=== PATIENT | female | born 1955 | race Caucasian/White ===

== ENCOUNTER → 2022-02-05 13:54 | Outpatient (CLI) | payer OTHER, SELFPAY ==
--- NOTE | ~2022-02-05 | DEXA_ITS ---
Bone Density Report Name: JOHANA ROD Age: 66 Sex: Female Ethnicity: White Date of : 1955 Indication: postmenopausal; screening for osteoporosis; parental hip fracture; height loss; Referring Provider: NAGA FRIEDMAN Study: Bone densitometry was performed. Exam Date: February 05, 2022 Accession number: [id number] Bone Density: Region BMD T-score Z-score Classification AP Spine (L1, L2) 0.981 0.0 1.7 Normal Femoral Neck (Left) 0.790 -0.5 1.0 Normal Total Hip (Left) 0.943 0.0 1.2 Normal Femoral Neck (Right) 0.724 -1.1 0.4 Osteopenia Total Hip (Right) 0.921 -0.2 1.0 Normal Total Hip Mean 0.932 -0.1 1.1 Normal World Health Organization criteria for BMD impression classify patients as: Normal (T-score at or above -1.0), Osteopenia (T-score between -1.0 and -2.5), or Osteoporosis (T-score at or below -2.5). 10-year Fracture Risk(1): Major Osteoporotic Fracture 16% Hip Fracture 0.6% Reported Risk Factors: [place] (), Neck BMD=0.724, BMI=28.4, parental fracture (1) FRAX(R) Version 3.08. Fracture probability calculated for an untreated patient. Fracture probability may be lower if the patient has received treatment. Previous Exams: Region Exam Age BMD T-score BMD Change BMD Change Date g/cm2 vs Baseline vs Previous AP Spine(L1, L2) 02/05/2022 66 0.981 0.0 0.042* 0.019 06/12/2016 61 0.962 -0.2 0.022 0.039* 06/25/2013 58 0.923 -0.5 -0.016 -0.016 05/01/2011 56 0.939 -0.4 Total Hip(Left) 02/05/2022 66 0.943 0.0 0.179* -0.004 06/12/2016 61 0.948 0.0 0.183* 0.028* 06/25/2013 58 0.919 -0.2 0.155* 0.155* 05/01/2011 56 0.764 -1.5 Total Hip(Right) 02/05/2022 66 0.921 -0.2 -0.022 -0.027 06/12/2016 61 0.948 0.0 0.005 0.029* 06/25/2013 58 0.918 -0.2 -0.025 -0.025 05/01/2011 56 0.943 0.0 *Denotes significance at 95% confidence level, LSC for AP Spine = 0.022 g/cm2, LSC for Total Hip = 0.027 g/cm2 Clinical Information Provided by Patient: Parent has had a hip fracture Has used the following medications: Vitamin D, Calcium Patient maximum height was 63.75 Menopause Age: 52 No regular weight bearing exercise Drinks caffeinated beverages Onset of menses at age 16 Number of children 0 Impression: The
--- NOTE | ~2022-02-05 | MM_ITS ---
EXAMINATION: MM screening [facility] BI w humberto HISTORY: Screening mammogram TECHNIQUE: Craniocaudal and mediolateral oblique 3-D tomosynthesis images were obtained and synthetic 2-D images were generated. CAD analysis was submitted and interpreted. COMPARISON: 02/10/2019, 06/12/2016, 11/06/2012 BREAST PARENCHYMAL COMPOSITION: There are scattered areas of fibroglandular density. FINDINGS: There is no suspicious mass, calcification, or architectural distortion to suggest malignan cy in either breast. There has been no suspicious interval change. IMPRESSION: 1. No mammographic evidence of malignancy. 2. Recommend routine screening mammography in one year. BI-RADS Category 1: Negative Reviewed, dictated and finalized at location A.
== END ==
PROVIDERS: PCP Obstetrics & Gynecology Gynecology; Visit Provider Obstetrics & Gynecology Gynecology
DX: Z12.31 Encounter for screening mammogram for malignant neoplasm of breast (principal); Z78.0 Asymptomatic menopausal state; M85.851 Other specified disorders of bone density and structure, right thigh
CPT/HCPCS: 77063; 77067; 77080

== ENCOUNTER → 2022-02-05 14:02 | Outpatient (CLI) | payer OTHER, SELFPAY ==
--- NOTE | ~2022-02-05 | US_ITS ---
EXAMINATION: US axilla RT INDICATION: Palpable lump of the right axilla TECHNIQUE: Targeted high-resolution ultrasound is performed in the area of clinical concern. COMPARISON: None available FINDINGS: No suspicious cystic or solid mass is identified in the area of the palpable abnormality. IMPRESSION: 1. No specific sonographic correlate is identified for the reported palpable abnormality of concern. Further evaluation at this time should be based on clinical assessment. Continued follow-up physical examination is recommended. BI-RADS Category 1: Negative Reviewed, dictated and finalized at location A. IMPRESSION: 1. No specific sonographic correlate is identified for the reported palpable ab normality of concern. Further evaluation at this time should be based on clinic al assessment. Continued follow-up physical examination is recommended. BI-RADS Category 1: Negative
== END ==
PROVIDERS: PCP Family Medicine Sports Medicine; Visit Provider Family Medicine Sports Medicine
DX: R22.31 Localized swelling, mass and lump, right upper limb (principal)
CPT/HCPCS: 76882

== ENCOUNTER 2022-08-01 11:07 | Day surgery (SDC) | payer MEDICARE, SELFPAY ==
[2022-07-18 08:17] VITALS: BMI 26.2
[2022-08-01 11:34] VITALS: BP 132/80; PULSE 71; RESP 16; TEMP 36.4; O2SAT 99
[2022-08-01] MEDS: LACTATED RINGERS 1,000 ML 150 ML IV CONT (12:00)
[2022-08-01 12:02] LABS: Glucose Point of Care 104 mg/dl (65-105)
--- NOTE | 2022-08-01 12:23 | P.PNAN_ITS ---
Anes - Initial Pre Proc Eval Procedure: Operation Date: 08/01/22 13:00 Proposed Procedures p Screening Colonoscopy - Abel Lora MD Date/Time: 08/01/22 12:23 Surgeon: Abel Lora MD Pre Op Diagnosis: Neoplasm Screening Patient Data Age: 67 Gender: F Height: 1.6 m Weight: 63 kg Last Vital Signs Temp 36.4 C L 08/01/22 11:34 Pulse 71 08/01/22 11:34 Resp 16 08/01/22 11:34 BP 132/80 08/01/22 11:34 Pulse Ox 99 08/01/22 11:34 O2 Del Method Room Air 08/01/22 11:34 Allergies Allergy/AdvReac Type Severity Reaction Status Date / Time No Known Allergies Allergy Unverified 08/01/22 11:36 Home Medications Medication Instructions Recorded Confirmed Type peg 3350-electrolytes 236 240 ml PO Q10M #4,000 mL 04/25/22 08/01/22 Rx gram-22.74 gram-6.74 gram-5.86 gram solution (Golytely) atorvastatin 20 mg tablet 80 mg PO DAILY 07/18/22 08/01/22 History metformin 500 mg tablet,extended 500 mg PO BID 07/18/22 08/01/22 History release 24 hr Laboratory Tests 08/01/22 11:59 POC Capillary Glucose 104 mg/dl mg/dl (65-105) Patient hx anesthesia problems: none Family hx anesthesia problems: none Results Review: All pre-operative results and documents have been reviewed as part of the pre- operative evaluation. [facility] Past Medical History Medical History (Updated 08/01/22 @ 12:24 by Stefano Escobar MD) Diabetes Hyperlipidemia Surgical History Surgical History (Updated 08/01/22 @ 12:24 by Stefano Escobar MD) H/O breast biopsy H/O colonoscopy Social History Social History Smoking status: Never smoker Alcohol intake: never Substance use: never Substance use type: does not use Living arrangements: with family Spiritual care concerns: No Anes - Eval Final PreProcedure Day of Procedure 08/01/22 12:23 Patient weight: normal Heart: regular rate and rhythm Lungs: clear to auscultation Airway: Mallampati scale class II Last oral intake: >/= 8 hours ASA classification: II Emergent: no Anesthetic plan: proceed Anesthesia type and monitoring: general GIVS and standard monitoring Results Review: All pre-operative results and documents have been reviewed as part of the pre- operative evaluation. Informed Consent: The patient's anesthetic plan and its attendant risks and benefits were discussed with the patient/family/POA. Questions were solicited and answers provided to the satisfaction of the patient/family/POA.
--- NOTE | 2022-08-01 12:40 | P.HP_ITS ---
History of Present Illness History of Present Illness Consent: Risks, benefits, and alternatives have been discussed and questions answered. Patient agrees to proceed with procedure. Chief complaint: Neoplasm Screening Narrative: Sandra Hernandez is a 67 year old female Presents for screening colonoscopy. Patient's current weight appetite and bowel movements appear normal. Patient denies abdominal pain. She has had no bleeding. Family history noncontribu tory. Review of Systems Review of Systems: Review of systems noncontributory. [facility] Past Medical History Medical History (Updated 08/01/22 @ 12:41 by Abel Lora MD) Diabetes Hyperlipidemia Surgical History Surgical History (Updated 08/01/22 @ 12:24 by Stefano Escobar MD) H/O breast biopsy H/O colonoscopy Social History Social History Smoking status: Never smoker Alcohol intake: never Substance use: never Substance use type: does not use Living arrangements: with family Spiritual care concerns: No Meds Home Medications and Allergies Home Medications Medication Instructions Recorded Confirmed Type peg 3350-electrolytes 236 240 ml PO Q10M #4,000 mL 04/25/22 08/01/22 Rx gram-22.74 gram-6.74 gram-5.86 gram solution (Golytely) atorvastatin 20 mg tablet 80 mg PO DAILY 07/18/22 08/01/22 History metformin 500 mg tablet,extended 500 mg PO BID 07/18/22 08/01/22 History release 24 hr Allergies Allergy/AdvReac Type Severity Reaction Status Date / Time No Known Allergies Allergy Unverified 08/01/22 11:36 Vital Signs Vital Signs - 24 hr 08/01/22 11:34 Temperature 97.5 F L Pulse Rate 71 Respiratory Rate 16 Blood Pressure 132/80 Pulse Oximetry 99 Oxygen Delivery Room Air Exam Narrative: Physical exam reveals patient be alert. Vital signs stable. HEENT exam is unremarkable. Patient is anicteric. Lungs are clear to auscultation and percussion. Heart is without murmur or extra sounds. Abdomen bowel sounds present soft nontender with no organomegaly. Digital external rectal exam is normal. Assessment and Plan Assessment and plan (1) Encounter for screening colonoscopy: Code(s): Z12.11 - Encounter for screening for malignant neoplasm of colon Status: Acute Assessment and Plan: Patient presents for screening colonoscopy. She appears to be at average risk for colon polyps. Further recommendations may be given after endoscopy.
[2022-08-01 13:25] VITALS: BP 104/72; PULSE 66; RESP 16; O2SAT 98
[2022-08-01 13:35] VITALS: BP 103/90; PULSE 61; RESP 16; O2SAT 99
--- NOTE | 2022-08-01 13:42 | SUR.PHASEII ---
PT AWAKE AND ALERT. EATING AND DRINKING. DENIES PAIN. SPOUSE UPDATED. HE WILL BE BACK AT [facility] AT 1400
--- NOTE | 2022-08-01 13:44 | WPDANESPN ---
Anes - Prog Note Post-Op Date/Time: 08/01/22 13:44 Cardiovascular status: normal Respiratory status: normal Airway patency: baseline Mental status: baseline Post-Op hydration status: normal Vital Signs: Last Vital Signs Temp 36.4 C L 08/01/22 11:34 Pulse 61 08/01/22 13:35 Resp 16 08/01/22 13:35 BP 103/90 08/01/22 13:35 Pulse Ox 99 08/01/22 13:35 O2 Del Method Room Air 08/01/22 13:35 Pain Score (VAS): 0/10 I/O: Intake & Output 07/31/22 08/01/22 08/01/22 23:59 07:59 15:59 Intake Total 400 Balance 400 08/01/22 11:59 POC Capillary Glucose 104 Patient Feedback: Patient satisfied with anesthetic care.
[2022-08-01 13:45] VITALS: BP 110/56; PULSE 70; RESP 16; O2SAT 97
== END 2022-08-01 13:59 | disposition home or self-care (01) ==
PROVIDERS: PCP Family Medicine Sports Medicine; Visit Provider Internal Medicine Gastroenterology
PROC: 0DJD8ZZ Inspection of Lower Intestinal Tract, Via Natural or Artificial Opening Endoscopic (ICD-10-PCS; CPT 45378; principal; 2022-08-01 13:00)
DX: Z12.11 Encounter for screening for malignant neoplasm of colon (principal)
CPT/HCPCS: 45378

== ENCOUNTER → 2023-06-23 09:52 | Outpatient (CLI) | payer MEDICARE, SELFPAY ==
--- NOTE | ~2023-06-23 | MM_ITS ---
EXAMINATION: MM screening [facility] BI w humberto HISTORY: Screening mammogram TECHNIQUE: Craniocaudal and mediolateral oblique 3-D tomosynthesis images were obtained and synthetic 2-D images were generated. CAD analysis was submitted and interpreted. COMPARISON: 02/05/2022, 02/10/2019 BREAST PARENCHYMAL COMPOSITION: There are scattered areas of fibroglandular density. FINDINGS: No suspicious mass, calcification, or architectural distortion are identified in either karen ast to suggest malignancy. There has been no suspicious interval change. IMPRESSION: 1. No mammographic evidence of malignancy. 2. Recommend routine screening mammography in one year. BI-RADS Category 1: Negative Reviewed, dictated and finalized at location A.
== END ==
PROVIDERS: PCP Obstetrics & Gynecology Gynecology; Visit Provider Obstetrics & Gynecology Gynecology
DX: Z12.31 Encounter for screening mammogram for malignant neoplasm of breast (principal)
CPT/HCPCS: 77063; 77067

== ENCOUNTER → 2023-07-14 09:05 | Outpatient (CLI) | payer MEDICARE, SELFPAY ==
--- NOTE | ~2023-07-14 | MM_ITS ---
EXAMINATION: MM diagnostic [facility] RT w humberto HISTORY: Asymmetry reported in far posterior third of inner right breast on 06/23/2023 screening crani ocaudal view TECHNIQUE: Additional 3-D tomosynthesis images of right breast were performed and synthetic 2-D image s were generated. CAD analysis was submitted and interpreted. COMPARISON: 06/23/2023 bilateral screening mammogram FINDINGS: No suspicious mass, architectural distortion, malignant constipation, skin thickening or re traction is detected. IMPRESSION: 1. No mammographic evidence of malignancy 2. Routine annual mammographic screening is recommended BI-RADS Category 1: Negative Reviewed, dictated and finalized at location A.
== END ==
PROVIDERS: PCP Family Medicine; Visit Provider Obstetrics & Gynecology Gynecology
DX: R92.8 Other abnormal and inconclusive findings on diagnostic imaging of breast (principal)
CPT/HCPCS: 77061; 77065; G0279

== ENCOUNTER 2024-09-17 08:28 | Outpatient (CLI) | payer MEDICARE, SELFPAY ==
--- NOTE | ~2024-09-17 | MMUS_ITS ---
EXAMINATION: MM diagnostic [facility] BI w humberto, US breast BI complete HISTORY: 69-year-old woman presents with inferior itching and discoloration of her R breast, itching x several months, discoloration (red and bruised looking) x weeks, no trauma. TECHNIQUE: 3-D tomosynthesis images of the bilateral breasts were performed and synthetic 2-D images were generated. CAD analysis was submitted and interpreted. COMPARISON: 07/14/2023 and dating back to 02/10/2019 BREAST PARENCHYMAL COMPOSITION:Not Dense. There are scattered areas of fibroglandular density. FINDINGS: MAMMOGRAPHIC FINDINGS: No discrete masses, architectural distortion, suspicious microcalcifications or significant asymmetry . TECHNIQUE: Sonographic evaluation of the bilateral breasts and bilateral axilla were performed assessing graysca le appearance and color Doppler flow. ULTRASOUND: Sonographic evaluation of the bilateral breasts and axilla demonstrate benign fibroglandular elements without a cystic or solid lesion of concern. No abnormal lymphadenopathy detected bilaterally. IMPRESSION: No mammographic/tomographic or sonographic evidence to suggest the presence of malignancy. BI-RADS Category 1: Negative examination. Follow-up for the clinical change should be performed with patient's primary referring clinician, as all breast imaging is negative. Resumption of yearly mammography is recommended. Reviewed, dictated and finalized at location A. US PICKER IMPRESSION: No mammographic/tomographic or sonographic evidence to suggest the presence of malignancy. BI-RADS Category 1: Negative examination. Follow-up for the clinical change should be performed with patient's primary re ferring clinician, as all breast imaging is negative. Resumption of yearly mammography is recommended.
== END 2024-09-17 08:29 | disposition home or self-care (01) ==
LOC: MICIMG 08:28
PROVIDERS: PCP Family Medicine; Visit Provider Advanced Practice Midwife
DX: N64.9 Disorder of breast, unspecified (principal)
CPT/HCPCS: 76641; 77062; 77066; G0279

== ENCOUNTER 2025-09-20 14:14 | Outpatient (CLI) | payer MEDICARE, SELFPAY ==
--- NOTE | ~2025-09-20 | MM_ITS ---
EXAMINATION: MM screening [facility] BI w humberto HISTORY: Screening TECHNIQUE: Craniocaudal and mediolateral oblique 3-D tomosynthesis images were obtained and synthetic 2-D images were generated. CAD analysis was submitted and interpreted. COMPARISON: 2023, 2022, and 2021 BREAST PARENCHYMAL COMPOSITION: There are scattered areas of fibroglandular tissue. FINDINGS: There are suggestion of architectural distortion at the superior aspect of the left MLO view. 3-dimensional mass is not seen. There are no suspicious calcifications. There are no skin or nipple abnormalities identified. There is no adenopathy seen on the images submitted. IMPRESSION: Questionable appearance on the left for which additional imaging is recommended. BI-RADS 0 - Incomplete - needs additional imaging evaluation Reviewed, dictated and finalized at location C. [employer] IMPRESSION: Questionable appearance on the left for which additional imaging is recommended . BI-RADS 0 - Incomplete - needs additional imaging evaluation
== END 2025-09-20 14:15 | disposition home or self-care (01) ==
LOC: ANHFOHIMG 14:16
PROVIDERS: PCP Family Medicine; Visit Provider Obstetrics & Gynecology Gynecology
DX: Z12.31 Encounter for screening mammogram for malignant neoplasm of breast (principal)
CPT/HCPCS: 77063; 77067